=== PATIENT | female | born 1990 | race Caucasian/White ===

== ENCOUNTER 2017-03-20 12:34 | Emergency (ER) | payer OTHER ==
[~2017-03-20] VITALS: Ht 160 cm; Wt 59.0 kg
--- NOTE | ~2017-03-20 | EKG ---
[place], [place] ELECTROCARDIOGRAM REPORT NAME: ROCHELLE YUN UNIT #: [id number] ROOM: DOCTOR: AAKASH JAIME,WINNIE BIRTHDATE: [birth year] DOS: 03/20/2017 TIME: 1245 hours. IMPRESSION: 1. Sinus rhythm. 2. Anterolateral ST-T changes; consider ischemia. 3. Low voltage complexes. 4. Normal QT interval. WINNIE FINN MD CM:EKGRPT:ELECTROCARDIOGRAM REPORT [id number] WINNIE FINN MD
[~2017-03-20 12:34] MED LIST: CATAFLAM50 MG PO; CLEOCIN150 MG PO; CLINDAMYCIN HC300 MG PO; Lomotil,Lonox 01 TAB PO; MOTRIN800 MG PO; Motrin,Rufen800 MG PO; NORCO 325 MG-51 TAB PO; PRILOSEC20 MG PO; TOPAMAX100 MG PO; TOPAMAX50 MG PO; ZOFRAN ODT4 MG SL; ZOFRAN4 MG PO; ZOLOFT50 MG PO
[2017-03-20 13:18] LABS: BASO % 0.7 % (0.0-1.0); EOS # 0.2 10*3/uL (0.0-0.4); HEMATOCRIT 35.9 % (37.0-47.0); HEMOGLOBIN 12.9 g/dl (12.0-16.0); LYMPH # 1.7 10*3/uL (1.3-4.4); LYMPH % 28.2 % (27.0-41.0); MEAN CELL VOLUME 89.3 fl (81.0-99.0); MEAN CORPUSCULAR HGB 32.1 pg (27.0-31.0); MEAN CORPUSCULAR HGB CONC 35.9 g/dl (33.0-37.0); MEAN PLATELET VOLUME 9.1 fl (9.6-12.3); MONO # 0.5 10*3/uL (0.1-1.0); MONO % 8.1 % (3.0-9.0); NEUT # 3.6 10*3/uL (2.3-7.9); NEUT % 59.8 % (47.0-73.0); PLATELET COUNT AUTOMATED 189 10*3/uL (130-400); RED BLOOD COUNT 4.02 10*6/uL (4.10-5.10); RED CELL DISTRI WIDTH 12.5 % (0-14.5)
[2017-03-20 13:31] LABS: ACT PARTIAL THROMBO TIME 28.7 SECONDS (20.8-31.5)
[2017-03-20 13:33] LABS: ALBUMIN 3.8 gm/dl (3.1-4.5); ALKALINE PHOSPHATASE 55 U/L (45-117); BUN 8 mg/dl (7-24); CHLORIDE 108 mmol/L (98-107); CREATININE 0.75 mg/dL (0.55-1.02); LIPASE 181 U/L (73-393); POTASSIUM 3.6 mmol/L (3.5-5.1); SGOT/AST 16 IU/L (3-35); SGPT/ALT 16 U/L (12-78); SODIUM 141 mmol/L (136-145); TOTAL PROTEIN 7.7 gm/dL (6.4-8.2)
[2017-03-20 13:36] LABS: BETA-HCG, QUANT < 1.0 mIU/mL (1-3); TROPONIN I < 0.015 ng/ml (<0.045)
[2017-03-20] MEDS ORDERED: Motrin,Rufen800 MG PO (16:16)
== END 2017-03-20 16:16 | disposition home or self-care (01) ==
LOC: ED 12:34
PROVIDERS: Emergency Medicine
DX: R07.89 Other chest pain (principal); R05 Cough; Z90.89 Acquired absence of other organs; Z88.0 Allergy status to penicillin; Z79.899 Other long term (current) drug therapy

== ENCOUNTER 2018-10-29 22:58 | Emergency (ER) | payer OTHER ==
[~2018-10-29] VITALS: Wt 61.2 kg
[2018-10-29] MEDS ORDERED: ZITHROMAX250 MG PO (23:37)
== END 2018-10-30 00:34 | disposition home or self-care (01) ==
LOC: ED 22:58
DX: J02.9 Acute pharyngitis, unspecified (principal); Z88.0 Allergy status to penicillin; Z79.899 Other long term (current) drug therapy; Z90.49 Acquired absence of other specified parts of digestive tract